=== PATIENT | male | born 1960 | race Caucasian/White ===

== ENCOUNTER 2022-09-27 12:46 | Day surgery (SDC) | payer BC ==
[2022-09-26 10:14] LABS: BASOPHILS # (AUTO) 0.1 X10'3 (0-0.2); BASOPHILS % (AUTO) 0.8 % (0-1); EOSINOPHILS # (AUTO) 0.1 X10'3 (0-0.9); EOSINOPHILS % (AUTO) 2.3 % (0-6); LYMPHOCYTES # (AUTO) 1.3 X10'3 (1.1-4.8); LYMPHOCYTES % (AUTO) 20.1 % (21-51); MEAN CORPUSCULAR HEMOGLOBIN 30.7 PG (27.0-31.0); MEAN CORPUSCULAR VOLUME 92.9 FL (78-98); MEAN PLATELET VOLUME 7.4 FL (7.4-10.4); MONOCYTES # (AUTO) 0.6 X10'3 (0-0.9); MONOCYTES % (AUTO) 10.1 % (2-12); NEUTROPHILS # (AUTO) 4.2 X10'3 (1.8-7.7); NEUTROPHILS % (AUTO) 66.7 % (42-75); PRE OP HEMATOCRIT 50.8 % (42.0-52.0); PRE OP HEMOGLOBIN 16.8 g/dL (14.0-17.9); PRE OP PLATELET COUNT 240 X10'3 (140-440); RED BLOOD COUNT 5.47 X10'6 (4.70-6.10); RED CELL DISTRIBUTION WIDTH 15.3 % (11.5-14.5)
[2022-09-26 10:30] LABS: ALBUMIN/GLOBULIN RATIO 1.3 (1.1-1.5); ALKALINE PHOSPHATASE 69 IU/L (46-116); BLOOD UREA NITROGEN 20 MG/DL (7-18); BUN/CREATININE RATIO 13.7 (5.4-32.0); CHLORIDE 105 MMOL/L (99-107); CREATININE 1.46 MG/DL (0.60-1.10); PRE OP ALT 25 U/L (30-65); PRE OP ANION GAP 9 (8-16); PRE OP AST 25 U/L (10-37); PRE OP BILIRUB, TOTAL 0.7 MG/DL (0.0-1.0); PRE OP GLUCOSE 98 MG/DL (70-104); PRE OP POTASSIUM 3.8 MMOL/L (3.4-5.1); PRE OP SODIUM 143 MMOL/L (135-145); TOTAL CARBON DIOXIDE 29.3 MMOL/L (24-32); TOTAL PROTEIN 7.1 G/DL (6.4-8.2); eGFR 49 ML/MIN
[~2022-09-27] VITALS: Ht 182.9 cm; Wt 86.7 kg
[2022-09-27] VITALS (17 sets, daily range): BP systolic 126–160; BP diastolic 78–99
[~2022-09-27 12:46] MED LIST: ASPI81TA52 PO; ROSU10TA2 PO; TEST200V33 SQ; ceFAZolin inj. 2,000 MG in dextrose 5%-water 100 ML IV ONE; famotidine 20mg tablet PO ONE; ringers solution, lacted 1,000 ML IV SCH
[2022-09-27] MEDS ORDERED: BUPIVAcaine/PF 2.5 mg/ml (0.25%) 30ml vial ONE (15:54)
[2022-09-27] MEDS ORDERED: LIDOcaine 1% 30ml preserv. free vial ONE (15:54)
[2022-09-27] MEDS ORDERED: midazolam 1 mg/ML 2ml injection ONE (16:03)
[2022-09-27] MEDS ORDERED: fentaNYL /PF 50mcg/ml 5ml ampule ONE (16:07)
[2022-09-27] MEDS ORDERED: acetaminophen 1,000mg/100ml IV 100 ML IV ONE (16:37)
[2022-09-27] MEDS ORDERED: glycopyrrolate 0.2mg/ml inj ONE (16:55)
[2022-09-27] MEDS ORDERED: rocuronium 10mg/ml inj IV ONE (16:55)
[2022-09-27] MEDS ORDERED: ePHEDrine 50MG/ML INJ. ONE (16:55)
[2022-09-27] MEDS ORDERED: LIDOcaine 1%/PF 5ML 10 MG/ML VIAL ONE (16:55)
[2022-09-27] MEDS ORDERED: neostigmine methylsulfate 1 MG/ML 10ml vial ONE (16:55)
[2022-09-27] MEDS ORDERED: ondansetron/PF 4mg/2ml inj ONE (16:55)
[2022-09-27] MEDS ORDERED: propofol inj 20 ML IV ONE (16:55)
[2022-09-27] MEDS ORDERED: dexamethasone sod phosphate 4mg/ml inj. ONE (16:55)
[2022-09-27] MEDS ORDERED: ringers solution, lacted 1,000 ML IV SCH (17:05)
[2022-09-27] MEDS ORDERED: morphine 4 MG/ML inj SYRINge IV PRN (17:05)
[2022-09-27] MEDS ORDERED: meperidine/PF 25mg/ml syringe IV PRN ×3 (17:05)
[2022-09-27] MEDS ORDERED: proCHLORperazine 10 MG/2 ml inj IV PRN (17:05)
[2022-09-27] MEDS ORDERED: ondansetron/PF 4mg/2ml inj IV PRN (17:05)
[2022-09-27] MEDS ORDERED: morphine 2 MG/ML inj. syringe IV PRN (17:05)
--- NOTE | 2022-09-27 17:28 | NUR ---
Received from OR via BED, accompanied by Anesthesiologist DR GREGORIO and report given by Anesthesiologist AND JEWELRY COATER. PT VERY DROWSY, NO S/S OF DISTRESS/DISCOMFORT, ABDOMEN W/3 LAP SITES W/BANDAIDS CDI. Addendum: 09/27/22 at 1758 by Carmina Mazariegos RN Amended: Links added.
[2022-09-27] MEDS ORDERED: HYDROcodone/acetaminophen 5mg/325mg tablet PO PRN (17:55)
[2022-09-27] MEDS ORDERED: ketorolac trometh. 30mg/ml inj. IV ONE (18:05)
--- NOTE | 2022-09-27 20:16 | NUR ---
PT WAS BLADDER SCANNED FOR 248 ML, PT UP AMBULATING AND ATTEMPTING TO VOID, STABLE, PAIN TOLERABLE. Addendum: 09/27/22 at 2101 by Carmina Mazariegos RN Amended: Links added.
[2022-09-27] MEDS ORDERED: LIDOcaine 2% 10ml TOPICAL JELLY (Urojet) MM ONE (21:15)
--- NOTE | 2022-09-27 22:08 | NUR ---
PT UNABLE TO VOID, RESCANNED BLADDER FOR 560 ML. PT AGREED TO [employer]ACEMENT. 16 [place] [employer]ACED W/ASEPTIC TECHNIQUE W/RETURN OF 700 ML CLEAR YELLOW URINE. PT TOLERATED WELL. D/C INSTRUCTIONS GIVEN AND GONE OVER W/PT AND PTS S/O WHO VERBALIZED UNDERSTANDING. PT D/CD TO HOME VIA W/C TO PRIVATE VEHICLE W/O INCIDENT. Addendum: 09/27/22 at 2219 by Carmina Mazariegos RN Amended: Links added.
== END 2022-09-27 22:08 | disposition home or self-care (01) ==
LOC: PAS 12:46
PROVIDERS: ATTEND Surgery
DX: K40.90 Unilateral inguinal hernia, without obstruction or gangrene, not specified as recurrent (principal); K42.9 Umbilical hernia without obstruction or gangrene; Z79.899 Other long term (current) drug therapy; Z98.890 Other specified postprocedural states; Z79.82 Long term (current) use of aspirin; E78.00 Pure hypercholesterolemia, unspecified; Z82.49 Family history of ischemic heart disease and other diseases of the circulatory system
CPT/HCPCS: 36415; 49585; 49650; 80053; 82948; 85025; 93005; C1781; J0131; J0690; J1100; J1885; J2175; J2250; J2405; J2704; J2710; J3010; J3490; J7030; J7060; J7120; S2900; Z7506; Z7508; Z7512; A4215; A4618

== ENCOUNTER 2025-01-24 09:04 | Outpatient (CLI) | payer OTHER ==
[~2025-01-24 09:04] MED LIST changes: -ceFAZolin inj. 2,000 MG in dextrose 5%-water 100 ML IV ONE; -famotidine 20mg tablet PO ONE; -ringers solution, lacted 1,000 ML IV SCH
== END 2025-01-24 23:59 | disposition home or self-care (01) ==
LOC: MRI02 09:04
PROVIDERS: ATTEND Family Medicine
DX: S83.512A Sprain of anterior cruciate ligament of left knee, initial encounter (principal); M25.462 Effusion, left knee; M65.862 Other synovitis and tenosynovitis, left lower leg; M94.262 Chondromalacia, left knee; X58.XXXA Exposure to other specified factors, initial encounter; Y93.89 Activity, other specified; Y92.89 Other specified places as the place of occurrence of the external cause; Y99.8 Other external cause status
CPT/HCPCS: 73721